=== PATIENT | female | born 1990 | race Caucasian/White ===

== ENCOUNTER 2017-04-06 09:59 | Day surgery (SDC) | payer BC ==
[2017-04-05 11:13] VITALS: BMI 25.4
[2017-04-06] MEDS ORDERED: CEFAZOLIN/Water 2 GM/20 ML SYRINGE ONE (10:30)
[2017-04-06] MEDS ORDERED: Heparin 5,000 UNITS/ML VIAL ONE (10:30)
[2017-04-06] MEDS ORDERED: Fentanyl 250 MCG/5 ML VIAL ONE (11:57)
[2017-04-06] MEDS ORDERED: EPINEPHrine 1 MG/10 ML Abboject SYRINGE ONE (12:15)
[2017-04-06] MEDS ORDERED: Bupivacaine 0.25% HCL 30 ML VIAL ONE ×2 (12:15→13:09)
[2017-04-06] MEDS ORDERED: Sodium Chloride 0.9% 0 ML ONE (12:15)
[2017-04-06] MEDS ORDERED: Lidocaine 1% (PF) 30 ML VIAL ONE (12:15)
[2017-04-06] MEDS ORDERED: EPINEPHrine 1 MG/ML AMP ONE (12:16)
[2017-04-06] MEDS ORDERED: Midazolam HCl 2 mg/2 ml Vial ONE (12:31)
[2017-04-06] MEDS ORDERED: Propofol 200 MG/20 ML VIAL ONE (12:42)
[2017-04-06] MEDS ORDERED: Ondansetron HCl/PF 4 MG/2 ML Vial ONE (12:42)
[2017-04-06] MEDS ORDERED: Glycopyrrolate 0.2 MG/ML 5 ML SYRINGE ONE (12:42)
[2017-04-06] MEDS ORDERED: Lidocaine 1% PF 5 ML VIAL ONE (12:42)
[2017-04-06] MEDS ORDERED: Dexamethasone 20 MG/5 ML VIAL ONE (12:42)
[2017-04-06] MEDS ORDERED: Promethazine HCl 25 MG/ML VIAL ONE (15:43)
[2017-04-06] MEDS ORDERED: Fentanyl 100 MCG/2 ML VIAL ONE (15:43)
--- NOTE | 2017-04-06 16:17 | OP ---
PREOPERATIVE DIAGNOSIS: Symptomatic macromastia. POSTOPERATIVE DIAGNOSIS: Symptomatic macromastia. PROCEDURE: Bilateral breast reduction. OPERATIVE FINDINGS: Right breast resection 259 grams. Left breast resection 211 grams. DESCRIPTION OF THE PROCEDURE: Following induction of adequate anesthesia, the patient was prepped a nd draped in the usual sterile fashion in the supine position. Attention was first turned to the ri t breast. The nipple was circumcised around a 42 mm nipple sizer. The modified Snyder patterns wer e incised. The inferior pole of the breast was then de-epithelialized. Flaps were raised superiorl y, medially, and laterally. Dermoglandular units were then resected superiorly, medially, and later ally with care to protect the sensibility and viability of the nipple areola pedicle. The field was copiously irrigated and inspected for meticulous hemostasis prior to closure of the inverted T with 3-0 PDS suture and 3-0 Monocryl suture. The nipple was brought out through a 42 mm nipple defect a nd inset with 3-0 Monocryl suture. Similar procedure was done on each side. The patient tolerated the procedure well.
[2017-04-06] MEDS ORDERED: Meperidine HCl/PF 25 MG/ML VIAL ONE (16:36)
== END 2017-04-06 18:25 | disposition home or self-care (01) ==
LOC: SDC 09:59
PROVIDERS: ATTEND Plastic Surgery
PROC: 0HBV0ZZ Excision of Bilateral Breast, Open Approach (ICD-10-PCS; principal; 2017-04-06)
DX: N62 Hypertrophy of breast (principal); Z91.041 Radiographic dye allergy status; Z91.040 Latex allergy status; Z90.710 Acquired absence of both cervix and uterus; Z90.49 Acquired absence of other specified parts of digestive tract; Z90.722 Acquired absence of ovaries, bilateral; Z90.79 Acquired absence of other genital organ(s); Z98.890 Other specified postprocedural states
CPT/HCPCS: 88305; 96374; A4216; J0131; J0171; J1100; J1644; J2001; J2175; J2250; J2405; J2550; J2704; J3010; S0020